=== PATIENT | male | born 1955 | race Caucasian/White ===

== ENCOUNTER 2022-03-19 17:36 | Observation (INO) | payer OTHER, BC, SELFPAY ==
[2022-03-19] VITALS (23 sets, daily range): BP systolic 77–141; BP diastolic 42–76; PULSE 66–91; RESP 2–64; TEMP 36.1; O2SAT 93–100; BMI 23.1; BMI 23.4
--- NOTE | 2022-03-19 17:49 | DI.RAD.S_ITS ---
PROCEDURE: XR CHEST 1V INDICATIONS: chest pain TECHNIQUE: One view of the chest was acquired. COMPARISON: [facility], CR, XR INTRAOPERATIVE PICC PORT PLACEMENT, 01/20/2022, 14:19. FINDINGS: Surgical changes and devices: Right-sided port with the catheter tip projecting at the cavoatrial junction. Lungs and pleura: Bilateral prominent pulmonary markings. No consolidation. No pleural effusions or pneumothorax. Mediastinum: Mediastinal contours appear normal. Heart size is within normal limits. Bones and chest wall: No suspicious bony lesions. Overlying soft tissues appear unremarkable. IMPRESSION: Right-sided port with the catheter tip projecting at the cavoatrial junction. Possible pulmonary vasculature engorgement. Dictated by: Nino Childs M.D. on 03/19/2022 at 18:30 Approved by: Nino Childs M.D. on 03/19/2022 at 18:31
--- NOTE | 2022-03-19 18:15 | ED.CHESTPAIN ---
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 He denies obvious provocation, palliation or radiation of this pain. He states that at its onset and most intense it was a 7/10 but is currently a 6/10. Denies any history of the same. He denies any exertional symptoms and states he denies any obvious exercise intolerance. He is had no associated symptoms such as dizziness, weakness or lightheadedness. He denies shortness of breath or cough. He denies unexplained diaphoresis nor nausea or vomiting. He denies any history of a stress test or an echo. He denies recent travel, history of known blood clot Related Data Home Medications Medication Instructions Recorded Confirmed HYDROCODONE/ACET 5/500 - 1 - 2 tab PO Q4-6H PRN ##0 06/01/10 (Hydrocodon-Acetaminophen 5-500) [VISINE] IO PRN ##0 06/01/10 acetaminophen 325 mg tablet 650 mg PO PRN ##0 06/01/10 Allergies Allergy/AdvReac Type Severity Reaction Status Date / Time morphine Allergy Vomiting Verified 03/19/22 17:48 Review of Systems Review of Systems Narrative: GENERAL: Denies chills, fatigue, malaise, fever, sweats. HEENT: Denies sinus pain, ear pain, sore throat, difficulty swallowing, dizziness. RESPIRATORY: Denies dyspnea, cough, wheezing, hemoptysis, sputum. CARDIOVASCULAR: See HPI GASTROINTESTINAL: Denies nausea, vomiting, abdominal pain, diarrhea, constipation, melena. : Denies dysuria, frequency, incontinence, hematuria, urinary retention. MUSCULOSKELETAL: denies weakness, joint pain, or bony pain SKIN: Denies rash, skin lesions, or other NEUROLOGIC: Denies weakness, headache, numbness, change in speech, confusion, seizures, incoordination. PSYCHIATRIC: No concerning psychosocial issues. 12 point review of systems is negative except for those stated above Patient History Social History Smoking Status: Never smoker Smoking Status: Never smoker Substance Use Type: does not use Exam Narrative Exam Narrative: GENERAL: [66] year old patient appears stated age. Well-developed patient, in mild distress. HEAD: Atraumatic. Normocephalic. EYES: Pupils equal round and reactive. Extraocular motions intact. No scleral icterus. No injection or drainage. ENT: Nose without bleeding, purulent drainage. Throat without erythema, tonsillar hypertrophy or exudate. Airway patent. NECK: Trachea midline. Non tender CARDIOVASCULAR: Regular rate and rhythm without murmurs, gallops, or rubs. RESPIRATORY: Clear to auscultation. Breath sounds equal bilaterally. No wheezes, rales, or rhonchi. GASTROINTESTINAL: Abdomen soft, non-tender, nondistended. EXTREMITIES: No edema or joint tenderness. BACK: Nontender without deformity or crepitance. No flank tenderness. NEURO: AOx3. SKIN: No rash or erythema of visible areas Initial Vital Signs Initial Vital Signs: Vital Signs Temperature 96.9 F L 03/19/22 17:42 Pulse Rate 78 03/19/22 17:42 Respiratory Rate 18 03/19/22 17:42 Blood Pressure 138/76 03/19/22 17:42 Pulse Oximetry 100 03/19/22 17:42 Oxygen Delivery Method 03/19/22 17:42 Scores HEART Score Heart Score history: Moderately Suspicious Heart Score EKG: Normal Heart Score Age: > or = 65 years old Heart Score risk factors: 1-2 risk factors Heart Score troponin: < or = to normal limit Heart Score Total: 4 Course Orders Ordered: ED Orders 03/19/22 17:49 XR chest 1V Stat 03/19/22 17:51 EKG-12 Lead Stat 03/19/22 18:10 Complete Blood Count AUTO DIFF Stat Comprehensive Metabolic Panel Stat D Dimer Stat Lipase Stat Magnesium Stat Troponin & CK Cardiac Panel Stat 03/19/22 18:39 EKG-12 Lead Stat 03/19/22 19:43 CT angio chest PE protocol Stat 03/19/22 20:38 Troponin & CK Cardiac Panel Stat 03/19/22 21:47 COVID19 -Nasal RAPID/Pre-Proc Stat Discontinued Medications Aspirin (Aspirin 81 Mg Chew Tab) 324 mg PO NOW ONE Stop: 03/19/22 18:47 Last Admin: 03/19/22 18:57 Dose: 324 mg Documented By: VINNY Ceftriaxone Sodium 2,000 mg/ (Sodium Chloride) 100 mls @ 200 mls/hr IV NOW ONE Stop: 03/19/22 22:14 Last Infusion: 03/19/22 23:14 Dose: 0 mls/hr Documented By: Admin: 03/19/22 22:26 Dose: 200 mls/hr Documented By: VINNY Azithromycin 500 mg/ Dextrose 250 mls @ 250 mls/hr IV NOW ONE Stop: 03/19/22 22:14 Last Admin: 03/19/22 23:11 Dose: 250 mls/hr Documented By: VINNY Ketorolac Tromethamine (Ketorolac 30 Mg/Ml Vial) 15 mg IV NOW ONE Stop: 03/19/22 19:24 Last Admin: 03/19/22 19:33 Dose: 15 mg Documented By: VINNY Nitroglycerin (Nitroglycerin 0.4 Mg Sl Tab) 0.4 mg SL [id number] PRN PRN Reason: Chest Pain Last Admin: 03/19/22 19:21 Dose: 0.4 mg Documented By: Admin: 03/19/22 19:04 Dose: 0.4 mg Documented By: Admin: 03/19/22 18:58 Dose: 0.4 mg Documented By: VINNY Reevaluation(s) Reevaluation #1: Little to no change after 3 nitro, though BP did drop quite a bit slowly rising afterwards with fluid bolus. It does drop to the 80s when he lays on his side and jumps back to the mid to upper 90s when on his back Vital Signs Vital signs: Vital Signs - 8 hr 03/19/22 17:42 03/19/22 17:59 03/19/22 18:00 Temperature 96.9 F L Pulse Rate 78 73 Respiratory Rate 18 13 Blood Pressure 138/76 141/70 H Pulse Oximetry 100 Oxygen Delivery Method Room Air 03/19/22 18:00 03/19/22 18:30 03/19/22 18:30 Temperature Pulse Rate 75 72 Respiratory Rate 7 L 10 L Blood Pressure 111/67 Pulse Oximetry 99 98 Oxygen Delivery Method 03/19/22 19:00 03/19/22 19:00 03/19/22 19:30 Temperature Pulse Rate 87 Respiratory Rate 14 Blood Pressure 116/56 L 77/48 L Pulse Oximetry 99 Oxygen Delivery Method 03/19/22 19:30 03/19/22 19:45 03/19/22 19:45 Temperature Pulse Rate 91 H 87 Respiratory Rate 10 L 2 L Blood Pressure 82/48 L Pulse Oximetry 95 94 Oxygen Delivery Method 03/19/22 20:34 03/19/22 20:34 03/19/22 20:45 Temperature Pulse Rate 76 71 Respiratory Rate 11 L Blood Pressure 89/54 L Pulse Oximetry 95 94 Oxygen Delivery Method 03/19/22 20:45 03/19/22 21:00 03/19/22 21:00 Temperature Pulse Rate 72 Respiratory Rate 11 L Blood Pressure 95/57 L 97/58 L Pulse Oximetry 95 Oxygen Delivery Method 03/19/22 21:15 03/19/22 21:15 03/19/22 21:30 Temperature Pulse Rate 77 Respiratory Rate 15 Blood Pressure 90/57 L 101/58 L Pulse Oximetry 94 Oxygen Delivery Method 03/19/22 21:30 03/19/22 21:45 03/19/22 21:45 Temperature Pulse Rate 73 69 Respiratory Rate 12 10 L Blood Pressure 80/42 L Pulse Oximetry 93 94 Oxygen Delivery Method 03/19/22 21:57 03/19/22 21:57 03/19/22 21:58 Temperature Pulse Rate 70 73 Respiratory Rate 64 H 18 Blood Pressure 84/51 L Pulse Oximetry 95 97 Oxygen Delivery Method 03/19/22 21:58 03/19/22 22:00 03/19/22 22:00 Temperature Pulse Rate 68 Respiratory Rate Blood Pressure 86/57 L 86/56 L Pulse Oximetry 95 Oxygen Delivery Method 03/19/22 22:15 03/19/22 22:15 03/19/22 22:30 Temperature Pulse Rate 68 67 Respiratory Rate Blood Pressure 94/57 L Pulse Oximetry 96 98 Oxygen Delivery Method 03/19/22 23:01 03/19/22 23:00 03/19/22 23:05 Temperature Pulse Rate 72 68 Respiratory Rate Blood Pressure 94/57 L 78/51 L Pulse Oximetry 96 Oxygen Delivery Method 03/19/22 23:05 03/19/22 23:07 03/19/22 23:07 Temperature Pulse Rate 66 75 Respiratory Rate Blood Pressure 80/54 L Pulse Oximetry 97 97 Oxygen Delivery Method MDM - Chest Pain Lab Data Result diagrams: 03/19/22 18:10 03/19/22 18:10 Labs: Lab Results 03/19/22 03/19/22 03/19/22 Range/Units 18:10 18:10 18:10 WBC 6.7 (4.5-11.0) X10^3/uL RBC 3.19 L (4.5-5.9) X10^6/uL Hgb 10.9 L (13.5-17.5) g/dL Hct 31.1 L (41-53) % MCV 97.7 (80-100) fL MCH 34.3 H (26-34) PG MCHC 35.1 (30-36) % RDW 15.5 H (11.6-14.8) % Plt Count 244 (150-400) X10^3/uL Neut % (Auto) 93.6 H (50-75) % Lymph % (Auto) 2.1 L (25-40) % Morgan % (Auto) 2.3 L (3-14) % Eos % (Auto) 1.7 L (2-4) % Baso % (Auto) 0.3 (0-2) % Neut # (Auto) 6300 (7085-3179) /uL Lymph # (Auto) 100 L (4603-5654) /uL Morgan # (Auto) 200 (0-900) /uL Eos # (Auto) 100 (0-450) /uL Baso # (Auto) 0 (0-100) /uL D-Dimer 1060 H (<500) ng/ml Sodium 134 L (137-145) mmol/L Potassium 4.1 (3.4-5.1) mmol/L Chloride 98 (98-107) mmol/L Carbon Dioxide 31 (22-32) mmol/L BUN 28 H (9-20) mg/dL Creatinine 0.61 L (0.66-1.25) mg/dL Estimated GFR > 60 (>60) mL/min BUN/Creatinine Ratio 45.9 H (6-22) Glucose 100 (80-110) mg/dL Calcium 8.2 L (8.4-10.2) mg/dL Magnesium 1.9 (1.6-2.3) mg/dL Total Bilirubin 0.9 (0.2-1.3) mg/dL AST 66 H (17-59) IU/L ALT 38 (<50) IU/L Alkaline Phosphatase 73 (38-126) U/L Total Creatine Kinase 59 (55-170) U/L CK-MB (CK-2) TNP CK-MB (CK-2) Rel Index TNP Troponin I < 0.012 (0.01-0.034) ng/mL Total Protein 6.3 (6.3-8.2) g/dL Albumin 3.5 (3.5-5.0) g/dL Globulin 2.8 (1.7-4.1) g/dL Albumin/Globulin Ratio 1.3 (1.0-2.8) Lipase 33 (23-300) U/L SARS-CoV-2 (PCR) (Negative) 03/19/22 03/19/22 Range/Units 20:38 21:47 WBC (4.5-11.0) X10^3/uL RBC (4.5-5.9) X10^6/uL Hgb (13.5-17.5) g/dL Hct (41-53) % MCV (80-100) fL MCH (26-34) PG MCHC (30-36) % RDW (11.6-14.8) % Plt Count (150-400) X10^3/uL Neut % (Auto) (50-75) % Lymph % (Auto) (25-40) % Morgan % (Auto) (3-14) % Eos % (Auto) (2-4) % Baso % (Auto) (0-2) % Neut # (Auto) (9618-6778) /uL Lymph # (Auto) (0166-1800) /uL Morgan # (Auto) (0-900) /uL Eos # (Auto) (0-450) /uL Baso # (Auto) (0-100) /uL D-Dimer (<500) ng/ml Sodium (137-145) mmol/L Potassium (3.4-5.1) mmol/L Chloride (98-107) mmol/L Carbon Dioxide (22-32) mmol/L BUN (9-20) mg/dL Creatinine (0.66-1.25) mg/dL Estimated GFR (>60) mL/min BUN/Creatinine Ratio (6-22) Glucose (80-110) mg/dL Calcium (8.4-10.2) mg/dL Magnesium (1.6-2.3) mg/dL Total Bilirubin (0.2-1.3) mg/dL AST (17-59) IU/L ALT (<50) IU/L Alkaline Phosphatase (38-126) U/L Total Creatine Kinase 50 L (55-170) U/L CK-MB (CK-2) TNP CK-MB (CK-2) Rel Index TNP Troponin I < 0.012 (0.01-0.034) ng/mL Total Protein (6.3-8.2) g/dL Albumin (3.5-5.0) g/dL Globulin (1.7-4.1) g/dL Albumin/Globulin Ratio (1.0-2.8) Lipase (23-300) U/L SARS-CoV-2 (PCR) Negative (Negative) Imaging Data Chest x-ray: Radiologist's Impression: Cole Moreno??66??M??1955 ? Allergy/Adv: morphine Close Chest X-Ray (Signed) CallYadielNino - 03/19/22 Launch?[place] [address] XRay Report Signed Patient: Cole Moreno MR#: [id number] : 1955 Acct:[id number] Age/Sex: 66 / M Date of Service: 03/19/22 Loc: Accession Number: [id number] ?? Procedure: XR chest 1V Ordering Provider: Osman Nuñez D.O. PROCEDURE:? XR CHEST 1V ? INDICATIONS:? chest pain ? TECHNIQUE:? One view of the chest was acquired.? ? COMPARISON:? [facility], CR, XR INTRAOPERATIVE PICC PORT PLACEMENT, 01/20/2022, 14:19. ? FINDINGS:? ? Surgical changes and devices:? Right-sided port with the catheter tip projecting at the cavoatrial junction. ? Lungs and pleura:? Bilateral prominent pulmonary markings.? No consolidation.? No pleural effusions or pneumothorax.? ? Mediastinum:? Mediastinal contours appear normal.? Heart size is within normal limits.? ? Bones and chest wall:? No suspicious bony lesions.? Overlying soft tissues appear unremarkable.? ? IMPRESSION:? Right-sided port with the catheter tip projecting at the cavoatrial junction.? ? Possible pulmonary vasculature engorgement.? ? ? Dictated by: Nino Childs M.D. on 03/19/2022 at 18:30 ? ? Approved by: Nino Childs M.D. on 03/19/2022 at 18:31 ? CT scan - chest: Radiologist's Impression: [address] [address] [address] Scan Report Signed Patient: Cole Moreno MR#: [id number] : 1955 Acct:[id number] Age/Sex: 66 / M Date of Service: 03/19/22 Loc: ED Accession Number: [id number] ?? Procedure: CT angio chest PE protocol Ordering Provider: Gera Don D.O. PROCEDURE:? CT ANGIO CHEST PE PROTOCOL ? INDICATIONS:? left chest pain, critical dimer, lung CA ? TECHNIQUE:? After the administration of intravenous contrast, 2 mm thick sections acquired from the pulmonary apices to the posterior costophrenic angles.? 3-dimensional maximum intensity projection (MIP) coronal and sagittal reformats were then acquired through the thorax.? For radiation dose reduction, the following was used:? automated exposure control, adjustment of mA and/or kV according to patient size.? ? COMPARISON:? None. ? FINDINGS:? Image quality:? Excellent.? ? Pulmonary arteries:? Pulmonary arteries are normal in size, and demonstrate no intraluminal filling defects to suggest central pulmonary embolism.? ? Lungs and pleura:? Spiculated opacity in the right lower lobe, (5/161).? This has a more curvilinear appearance on the coronal reformats.? Scattered areas of consolidative and ground-glass opacity bilaterally.? Pleural apical scarring.? Central airways are clear.? No pleural effusions or pneumothorax.? ? Mediastinum:? Heart size is normal, without pericardial effusion.? AP window node measuring 0.8 cm, (4/58)? Ascending aorta aneurysmal dilatation measuring 3.6 cm.? Esophagus is normal in caliber, without hiatal hernia.? ? Bones and chest wall:? Right-sided port with the catheter tip at the cavoatrial junction. ?Sclerotic focus at T7 is indeterminate.? Multilevel degenerative change.? T6 and T10 compression fractures.? Left thyroid nodule measuring 1.4 cm.? No axillary or supraclavicular adenopathy.? ? Abdomen:? Visualized upper abdominal solid organs appear normal in the early arterial phase of enhancement.? ? IMPRESSION:? 1. No pulmonary embolism. ? 2. Bilateral small areas of patchy and consolidative airspace opacity.? This could be seen in multifocal pneumonia. ? 3. Spiculated nodular opacity in the right lower lobe.? This could represent a lung cancer.? Possibly treated.? ? 4. Aneurysmal dilatation of the ascending thoracic aorta measuring 3.6 cm. ? 5. Sclerotic focus at T7 is indeterminate.? This could be degenerative in nature. ? 6. T6 and T10 compression fractures. ? Recommend comparison with prior CT chest when available. ? ? Dictated by: Nino Childs M.D. on 03/19/2022 at 20:26 ? ? Approved by: Nino Childs M.D. on 03/19/2022 at 20:37 ? ECG Data Interpretation: [1751] EKG is normal sinus rhythm rate [74 ] and free of any signs of ischemia or ectopy. No ST segmental elevation or depression. No T wave inversions [1837] EKG is normal sinus rhythm rate [73 ] and free of any signs of ischemia or ectopy. No ST segmental elevation or depression. No T wave inversions Discharge Plan Departure Patient Disposition: Admitted As Inpatient Clinical Impression: Multifocal pneumonia, Atypical chest pain Admit Date/Time: 03/19/22 23:10 Admit Provider: Pretty Francis
[2022-03-19 18:28] LABS: Add Manual Diff / Slide Review NO; Basophils Absolute Auto 0 /uL (0-100); Basophils Percent Auto 0.3 % (0-2); Eosinophils Absolute Auto 100 /uL (0-450); Eosinophils Percent Auto 1.7 % (2-4); Hematocrit 31.1 % (41-53); Hemoglobin 10.9 g/dL (13.5-17.5); Lymphocytes Absolute Auto 100 /uL (1100-4500); Lymphocytes Percent Auto 2.1 % (25-40); Mean Corpuscular HGB Conc 35.1 % (30-36); Mean Corpuscular Hemoglobin 34.3 PG (26-34); Mean Corpuscular Volume 97.7 fL (80-100); Monocytes Absolute Auto 200 /uL (0-900); Monocytes Percent Auto 2.3 % (3-14); Neutrophils Absolute Auto 6300 /uL (1500-7000); Neutrophils Percent Auto 93.6 % (50-75); Platelet Count 244 X10^3/uL (150-400); Red Blood Cell Count 3.19 X10^6/uL (4.5-5.9); Red Cell Distribution Width 15.5 % (11.6-14.8); White Blood Cell Count 6.7 X10^3/uL (4.5-11.0)
[2022-03-19 18:48] LABS: Alanine Aminotransferase 38 IU/L (<50); Albumin 3.5 g/dL (3.5-5.0); Albumin Globulin Ratio 1.3 (1.0-2.8); Alkaline Phosphatase 73 U/L (38-126); Aspartate Aminotransferase 66 IU/L (17-59); BUN Creatinine Ratio 45.9 (6-22); Bilirubin Total 0.9 mg/dL (0.2-1.3); Blood Urea Nitrogen 28 mg/dL (9-20); Calcium 8.2 mg/dL (8.4-10.2); Carbon Dioxide 31 mmol/L (22-32); Chloride 98 mmol/L (98-107); Creatine Kinase 59 U/L (55-170); Estimated Glomerular Filt Rate > 60 mL/min (>60); Globulin 2.8 g/dL (1.7-4.1); Glucose 100 mg/dL (80-110); HEMOLYSIS < 15 (0-50); Lipase 33 U/L (23-300); Magnesium 1.9 mg/dL (1.6-2.3); Potassium 4.1 mmol/L (3.4-5.1); Sodium 134 mmol/L (137-145); Total Protein 6.3 g/dL (6.3-8.2)
[2022-03-19] MEDS: ASPIRIN 81 MG CHEW TAB 324 MG PO (18:57)
[2022-03-19 18:58] LABS: Troponin I < 0.012 ng/mL (0.01-0.034)
[2022-03-19] MEDS: NITROGLYCERIN 0.4 MG SL TAB SL ×3 (18:58→19:21)
[2022-03-19 19:04] LABS: D Dimer 1060 ng/ml (<500)
[2022-03-19] MEDS: KETOROLAC 30 MG/ML VIAL 15 MG IV (19:33)
--- NOTE | 2022-03-19 19:43 | DI.CT.S_ITS ---
PROCEDURE: CT ANGIO CHEST PE PROTOCOL INDICATIONS: left chest pain, critical dimer, lung CA TECHNIQUE: After the administration of intravenous contrast, 2 mm thick sections acquired from the pulmonary apices to the posterior costophrenic angles. 3-dimensional maximum intensity projection (MIP) coronal and sagittal reformats were then acquired through the thorax. For radiation dose reduction, the following was used: automated exposure control, adjustment of mA and/or kV according to patient size. COMPARISON: None. FINDINGS: Image quality: Excellent. Pulmonary arteries: Pulmonary arteries are normal in size, and demonstrate no intraluminal filling defects to suggest central pulmonary embolism. Lungs and pleura: Spiculated opacity in the right lower lobe, (5/161). This has a more curvilinear appearance on the coronal reformats. Scattered areas of consolidative and ground-glass opacity bilaterally. Pleural apical scarring. Central airways are clear. No pleural effusions or pneumothorax. Mediastinum: Heart size is normal, without pericardial effusion. AP window node measuring 0.8 cm, (4/58) Ascending aorta aneurysmal dilatation measuring 3.6 cm. Esophagus is normal in caliber, without hiatal hernia. Bones and chest wall: Right-sided port with the catheter tip at the cavoatrial junction. Sclerotic focus at T7 is indeterminate. Multilevel degenerative change. T6 and T10 compression fractures. Left thyroid nodule measuring 1.4 cm. No axillary or supraclavicular adenopathy. Abdomen: Visualized upper abdominal solid organs appear normal in the early arterial phase of enhancement. IMPRESSION: 1. No pulmonary embolism. 2. Bilateral small areas of patchy and consolidative airspace opacity. This could be seen in multifocal pneumonia. 3. Spiculated nodular opacity in the right lower lobe. This could represent a lung cancer. Possibly treated. 4. Aneurysmal dilatation of the ascending thoracic aorta measuring 3.6 cm. 5. Sclerotic focus at T7 is indeterminate. This could be degenerative in nature. 6. T6 and T10 compression fractures. Recommend comparison with prior CT chest when available. Dictated by: Nino Childs M.D. on 03/19/2022 at 20:26 Approved by: Nino Childs M.D. on 03/19/2022 at 20:37
[2022-03-19 21:32] LABS: Creatine Kinase 50 U/L (55-170)
[2022-03-19 21:45] LABS: Troponin I < 0.012 ng/mL (0.01-0.034)
[2022-03-19 22:08] LABS: COVID19 -Nasal RAPID Negative (Negative)
[2022-03-19] MEDS: cefTRIAXone 2,000 MG in SODIUM CHLORIDE 0.9% 100 ML 200 MG IV (22:26)
--- NOTE | 2022-03-19 23:03 | PC.NURSE ---
[employer] note: Pat, friend, phone number: [phone]. Left for the evening.
[2022-03-19] MEDS: AZITHROMYCIN 500 MG in DEXTROSE 5% IN WATER 250 ML 250 MG IV (23:11)
[2022-03-19] MEDS: SODIUM CHLORIDE 0.9% 1,000 ML 175 ML IV (23:57)
[2022-03-20] VITALS (11 sets, daily range): BP systolic 83–99; BP diastolic 38–62; PULSE 46–77; RESP 16–21; TEMP 36.6–37.2; O2SAT 94–99
--- NOTE | 2022-03-20 | PC.NURSE ---
Patient admitted from ED to room 221 for chest pain and hypotension. On arrival, patient's BP 80/54 while receiving NS bolus. BP cycling Q15 min. Patient rated 3/10 chest pain. Scheduled Q6 torodol ordered for pain management.
--- NOTE | 2022-03-20 00:08 | P.HP_ITS ---
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 He stated that it occurred about 315 did on March 19 while at rest. He denies fevers sweats or chills, denies nausea vomiting, abdominal pain, dysuria or constipation. He states the pain is right in the center of his chest and it is not reproducible with pressure. Was given nitro x3 in the emergency department with no effect but it appeared to resolve with Toradol. He stated he did have some shortness of breath but it was very transient. In the emergency department they did do a CTA of the chest due to an elevated D- dimer of over 1000 which was negative. His 1st troponin is also negative. The chest CTA did indicate bilateral lower lobe consolidation and the patient is presumed to have a bilateral pneumonia. He is afebrile, blood pressure 88/51, heart rate 46, respiratory rate 21, oxygen saturation 99% on room air he weighs 62 kg with a BMI of 23.5. He is mildly anemic with a hemoglobin and hematocrit of 10.9 and 31.1, he has a normal Pap platelet count, initial D-dimer was 1060, sodium 134, creatinine 0.61 with a BUN of 28, AST 66, and COVID 19 PCR is negative. FH: He believes his mother passed of bilateral breast cancer at the age of 88. He does not know his father is only met him once. Patient History Medical History Lung cancer, primary, with metastasis from lung to other site Surgical History Hx of appendectomy Hx of bilateral hip replacements Family & Social History Family History Mother Cancer Father Unknown family medical history Safety & Behavioral: Feels Safe in Current Yes Environment Been Physically Hurt or No Threatened By a Person Tobacco & Substance use: Smoking Status Never smoker Substance Use Type does not use Comment: Drinks 2-3 mixed hard liquer drinks/day, denies hx of withdrawals. Meds Home Medications and Allergies Home Medications Medication Instructions Recorded Confirmed Type HYDROCODONE/ACET 5/500 - 1 - 2 tab PO Q4-6H PRN ##0 06/01/10 03/20/22 History (Hydrocodon-Acetaminophen 5-500) [VISINE] IO PRN ##0 06/01/10 History acetaminophen 325 mg tablet 650 mg PO PRN ##0 06/01/10 03/20/22 History folic acid 15 mg tablet 10 mg PO BID 03/20/22 03/20/22 History magnesium 200 mg tablet 200 mg DAILY 03/20/22 03/20/22 History methadone 10 mg tablet 10 mg PO BID 03/20/22 03/20/22 History Allergies Allergy/AdvReac Type Severity Reaction Status Date / Time morphine Allergy Vomiting Verified 03/19/22 17:48 Review of Systems Review of Systems ROS: Yes All systems reviewed with the patient and are negative except as otherwise documented Exam Vital Signs (past 8 hours): - 03/19/22 17:42 03/19/22 17:59 03/19/22 18:00 Temperature 96.9 F L Pulse Rate 78 73 Respiratory Rate 18 13 Blood Pressure 138/76 141/70 H Pulse Oximetry 100 Oxygen Delivery Method Room Air 03/19/22 18:00 03/19/22 18:30 03/19/22 18:30 Temperature Pulse Rate 75 72 Respiratory Rate 7 L 10 L Blood Pressure 111/67 Pulse Oximetry 99 98 Oxygen Delivery Method 03/19/22 19:00 03/19/22 19:00 03/19/22 19:30 Temperature Pulse Rate 87 Respiratory Rate 14 Blood Pressure 116/56 L 77/48 L Pulse Oximetry 99 Oxygen Delivery Method 03/19/22 19:30 03/19/22 19:45 03/19/22 19:45 Temperature Pulse Rate 91 H 87 Respiratory Rate 10 L 2 L Blood Pressure 82/48 L Pulse Oximetry 95 94 Oxygen Delivery Method 03/19/22 20:34 03/19/22 20:34 03/19/22 20:45 Temperature Pulse Rate 76 71 Respiratory Rate 11 L Blood Pressure 89/54 L Pulse Oximetry 95 94 Oxygen Delivery Method 03/19/22 20:45 03/19/22 21:00 03/19/22 21:00 Temperature Pulse Rate 72 Respiratory Rate 11 L Blood Pressure 95/57 L 97/58 L Pulse Oximetry 95 Oxygen Delivery Method 03/19/22 21:15 03/19/22 21:15 03/19/22 21:30 Temperature Pulse Rate 77 Respiratory Rate 15 Blood Pressure 90/57 L 101/58 L Pulse Oximetry 94 Oxygen Delivery Method 03/19/22 21:30 03/19/22 21:45 03/19/22 21:45 Temperature Pulse Rate 73 69 Respiratory Rate 12 10 L Blood Pressure 80/42 L Pulse Oximetry 93 94 Oxygen Delivery Method 03/19/22 21:57 03/19/22 21:57 03/19/22 21:58 Temperature Pulse Rate 70 73 Respiratory Rate 64 H 18 Blood Pressure 84/51 L Pulse Oximetry 95 97 Oxygen Delivery Method 03/19/22 21:58 03/19/22 22:00 03/19/22 22:00 Temperature Pulse Rate 68 Respiratory Rate Blood Pressure 86/57 L 86/56 L Pulse Oximetry 95 Oxygen Delivery Method 03/19/22 22:15 03/19/22 22:15 03/19/22 22:30 Temperature Pulse Rate 68 67 Respiratory Rate Blood Pressure 94/57 L Pulse Oximetry 96 98 Oxygen Delivery Method 03/19/22 23:01 03/19/22 23:00 03/19/22 23:05 Temperature Pulse Rate 72 68 Respiratory Rate Blood Pressure 94/57 L 78/51 L Pulse Oximetry 96 Oxygen Delivery Method 03/19/22 23:05 03/19/22 23:07 03/19/22 23:07 Temperature Pulse Rate 66 75 Respiratory Rate Blood Pressure 80/54 L Pulse Oximetry 97 97 Oxygen Delivery Method 03/19/22 23:15 03/19/22 23:15 Temperature Pulse Rate 67 Respiratory Rate Blood Pressure 94/54 L Pulse Oximetry 96 Oxygen Delivery Method Oxygen Delivery Method Room Air Narrative Exam Narrative: Gen: Alert, oriented, chronic LE ill-appearing 66 y.o. male, appears older than stated age HEENT: normocephalic, atraumatic, conjunctiva clear, sclera non-icteric, oral mucosa pink and moist Neck: supple, full ROM, no JVD, trachea is midline Resp: Coarse but no wheezes, non-labored breathing CV: RRR, no murmur or rubs Abd: soft, non-tender, normoactive BTs Skin: no lesions or rashes, dry and intact Neuro: Alert and oriented X 4 w/no focal deficits. Speech clear and coherent. Extremities: moves all 4 extremities, is ambulatory, negative Edna?s sign Psyche: Depressed affect. Objective Labs Result Diagrams: 03/19/22 18:10 03/19/22 18:10 Labs: Laboratory Results - last 24 hr 03/19/22 03/19/22 03/19/22 18:10 18:10 18:10 WBC 6.7 RBC 3.19 L Hgb 10.9 L Hct 31.1 L MCV 97.7 MCH 34.3 H MCHC 35.1 RDW 15.5 H Plt Count 244 Neut % (Auto) 93.6 H Lymph % (Auto) 2.1 L Sanders % (Auto) 2.3 L Eos % (Auto) 1.7 L Baso % (Auto) 0.3 Neut # (Auto) 6300 Lymph # (Auto) 100 L Sanders # (Auto) 200 Eos # (Auto) 100 Baso # (Auto) 0 D-Dimer 1060 H Sodium 134 L Potassium 4.1 Chloride 98 Carbon Dioxide 31 BUN 28 H Creatinine 0.61 L Estimated GFR > 60 BUN/Creatinine Ratio 45.9 H Glucose 100 Calcium 8.2 L Magnesium 1.9 Total Bilirubin 0.9 AST 66 H ALT 38 Alkaline Phosphatase 73 Total Creatine Kinase 59 CK-MB (CK-2) TNP CK-MB (CK-2) Rel Index TNP Troponin I < 0.012 Total Protein 6.3 Albumin 3.5 Globulin 2.8 Albumin/Globulin Ratio 1.3 Lipase 33 SARS-CoV-2 (PCR) 03/19/22 03/19/22 20:38 21:47 WBC RBC Hgb Hct MCV MCH MCHC RDW Plt Count Neut % (Auto) Lymph % (Auto) Sanders % (Auto) Eos % (Auto) Baso % (Auto) Neut # (Auto) Lymph # (Auto) Sanders # (Auto) Eos # (Auto) Baso # (Auto) D-Dimer Sodium Potassium Chloride Carbon Dioxide BUN Creatinine Estimated GFR BUN/Creatinine Ratio Glucose Calcium Magnesium Total Bilirubin AST ALT Alkaline Phosphatase Total Creatine Kinase 50 L CK-MB (CK-2) TNP CK-MB (CK-2) Rel Index TNP Troponin I < 0.012 Total Protein Albumin Globulin Albumin/Globulin Ratio Lipase SARS-CoV-2 (PCR) Negative Assessment & Plan Assessment & Plan narrative: Cole Moreno will be admitted for treatment of a bilateral pneumonia and cardiac risk stratification for chest pain. Bilateral pneumonia, acute, present on admission * He is initiated on IV ceftriaxone * RT is needed though he seems to be oxygenating well at this time Left-sided chest pain, acute, present on admission * He did receive 3 doses of nitroglycerin in the emergency department with no effect, his pain was actually eliminated with IV ketorolac * Will order a lipid panel and an echocardiogram in the morning * First troponin was negative, he is ordered for 2 more draws Stage IV lung cancer with metastasis to the brain and spine * Suspect chest pain might be due to bone metastasis VTE Prophylaxis: Wells risk score 1 Enoxaparin 40 mg subQ once daily Bilateral SCDs Patient is admitted to the inpatient service due to the severity of disease, ri sks of further disease progression and this stay is expected to exceed 2 midnights. FEN: IV fluids: NS at 175 ml/hour , diet: general, labs: CBC, C/BMP, liver enzymes, Mag, PT/INR Consultants None Dispo: probable d/c to home Code status: DNR/DNI as discussed with the patient who identifies daughter Mike and son Juan as his surrogates and POA. Stated he would be open to a cardiac cath if indicated [X] I have utilized all available immediate resources to obtain, update, or review of the patient's current medications VTE Deep Vein Thrombosis/Pulmonary Embolism Present on Admission: No MIPS - Admit I confirm the patient?s Advance Care Plan is present, Code status is documented, Surrogate decision maker is in patient?s record: Yes MIPS - DC The patient has current or prior documentation of left ventricular ejection fraction (LVEF) less than 40%, or moderate or severely depressed left ventricular systolic function.: No COVID-19 COVID-19 status: Negative Result date/Date tested (Pos, Neg/Pending): 03/19/22 Scores Wells' Criteria for PE Clinical signs and symptoms of DVT: No PE is #1 Dx or equally likely: No Heart rate > 100: No Immobilization at least 3 days or surg in previous 4 weeks: No History of PE or DVT: No Hemoptysis: No Malignancy w/Treatment within 6 months or palliative: Yes Torsten' PE Score total: 1
--- NOTE | 2022-03-20 00:08 | DI.ECHO.S_ITS ---
[facility]---------+ [facility] +---------+ : : [address] : : : : [id number] : : : : Phone: [phone]+ Echocardiogram Report + + :Name: FRANSICO ZAPATA Study Date: 03/20/2022 Height: 64 in : :[facility] ReadingLocation: Weight: 135 lb: : Gender: Male BSA: 1.7 m2 : :: 1955 Age: 66 yrs BP: 96/57 mmHg: :Reason For Study: Chest pain : :Ordering Physician: JAZZ, : :RONIT Performed By: Washington Calderon : :Referring: RONIT SCHULZ : + + Interpretation Summary The left ventricle is normal in size and wall thickness. Left ventricular systolic function is normal. The ejection fraction is estimated to be 55-60%. There are no focal wall motion abnormalities. Diastolic parameters suggest probable normal left ventricular diastolic function and normal filling pressures. The right ventricle is normal in size and function. The right ventricular systolic pressure is estimated to be at least 28 mmHg based on an estimated right atrial pressure of 3 mm Hg. The left atrium is severely dilated. Right atrial size is normal. There is mild mitral regurgitation. There is no other significant valvular heart disease. The aortic root is normal size. Procedure: A two-dimensional transthoracic echocardiogram with color flow and Doppler was performed. The study quality was technically adequate. There is no prior echocardiogram noted for this patient. Left Ventricle: The left ventricle is normal in size and wall thickness. Left ventricular systolic function is normal. The ejection fraction is estimated to be 55-60%. There are no focal wall motion abnormalities. Diastolic parameters suggest probable normal left ventricular diastolic function and normal filling pressures. Right Ventricle: The right ventricle is normal in size and function. Atria: The left atrium is severely dilated. Right atrial size is normal. The interatrial septum grossly appears intact with no obvious evidence for an atrial septal defect. Mitral Valve: The mitral valve is normal in structure and function. There is mild mitral regurgitation. Aortic Valve: The aortic valve is normal in structure and function. No aortic regurgitation is present. Tricuspid Valve: The tricuspid valve is normal in structure and function. There is a trace or physiologic amount of tricuspid regurgitation. The right ventricular systolic pressure is estimated to be at least 28 mmHg based on an estimated right atrial pressure of 3 mm Hg. Pulmonic Valve: The pulmonic valve is normal in structure and function. There is no pulmonic valvular regurgitation. There is no other significant valvular heart disease. Great Vessels: The aortic root is normal size. The dimensions of the ascending aorta are normal. The IVC is of normal diameter and collapses greater than 50% with a sniff. This suggests a low right atrial pressure of 3 mm Hg. Pericardium/ Pleura There is no pericardial effusion. There is no pleural effusion. MMode/2D Measurements & Calculations LVIDd: 5.2 cm LVOT diam: 2.4 cm LVIDs: 3.5 cm Ao root diam: 3.7 cm FS: 31.6 % asc Aorta Diam: 3.4 cm IVSd: 0.96 cm LVPWd: 1.1 cm LV ng. diameter/BSA (cm/m^2): 3.1 LV sys. diameter/BSA (cm/m^2): 2.1 LA A2 area: 25.0 cm2 RA long axis: 5.3 cm LA A4 area: 25.8 cm2 RA area: 13.8 cm2 LA length (vol): 6.2 cm RA vol: 30.3 ml LA vol: 88.2 ml RA : 18.3 ml/m2 LA vol index: 53.3 ml/m2 TAPSE: 1.8 cm Doppler Measurements & Calculations Ao V2 max: 153.7 cm/sec LVOT Max Lenny: 117.2 cm/sec Ao V2 mean: 104.9 cm/sec LV V1 max P.5 mmHg Ao max P.5 mmHg LV V1 VTI: 22.6 cm Ao mean P.8 mmHg LUIS(I,D): 3.9 cm2 Ao V2 VTI: 25.9 cm LUIS(V,D): 3.4 cm2 sev ratio: 0.87 LUIS indexed to BSA (cm^2/m^2): 2.3 MV E max lenny: 73.4 cm/sec TR max lenny: 249.6 cm/sec MV A max lenny: 86.5 cm/sec TR max P.9 mmHg MV E/A: 0.85 Med Peak E' Lenny: 8.0 cm/sec E/E' med: 9.2 Lat Peak E' Lenny: 10.6 cm/sec E/E' lat: 6.9 E/e' average: 8.1 MV dec time: 0.23 sec SV(LVOT): 100.3 ml Reading Physician:12:34 PM
[2022-03-20] MEDS: KETOROLAC 30 MG/ML VIAL 15 MG IV (01:25)
--- NOTE | 2022-03-20 01:35 | PC.NURSE ---
Patient's BP 80's/40's with MAP's in low 50's. MASTER PLANNER Tito made aware. 1L NS bolus ordered. Will continue to monitor.
[2022-03-20] MEDS: SODIUM CHLORIDE 0.9% 1,000 ML 1000 ML IV (01:47)
[2022-03-20 02:47] LABS: Add Manual Diff / Slide Review NO; Basophils Absolute Auto 0 /uL (0-100); Basophils Percent Auto 0.2 % (0-2); Eosinophils Absolute Auto 100 /uL (0-450); Eosinophils Percent Auto 1.2 % (2-4); Hematocrit 26.6 % (41-53); Hemoglobin 9.1 g/dL (13.5-17.5); Lymphocytes Absolute Auto 100 /uL (1100-4500); Lymphocytes Percent Auto 2.4 % (25-40); Mean Corpuscular HGB Conc 34.3 % (30-36); Mean Corpuscular Hemoglobin 33.9 PG (26-34); Mean Corpuscular Volume 98.7 fL (80-100); Monocytes Absolute Auto 100 /uL (0-900); Monocytes Percent Auto 2.2 % (3-14); Neutrophils Absolute Auto 4400 /uL (1500-7000); Platelet Count 198 X10^3/uL (150-400); Red Blood Cell Count 2.69 X10^6/uL (4.5-5.9); Red Cell Distribution Width 15.6 % (11.6-14.8); White Blood Cell Count 4.7 X10^3/uL (4.5-11.0)
[2022-03-20 02:53] LABS: Alanine Aminotransferase 30 IU/L (<50); Albumin 2.7 g/dL (3.5-5.0); Albumin Globulin Ratio 1.1 (1.0-2.8); Alkaline Phosphatase 57 U/L (38-126); Aspartate Aminotransferase 53 IU/L (17-59); BUN Creatinine Ratio 39.7 (6-22); Bilirubin Total 0.8 mg/dL (0.2-1.3); Blood Urea Nitrogen 23 mg/dL (9-20); Calcium 6.9 mg/dL (8.4-10.2); Carbon Dioxide 28 mmol/L (22-32); Chloride 103 mmol/L (98-107); Cholesterol 100 mg/dL (140-199); Estimated Glomerular Filt Rate > 60 mL/min (>60); Globulin 2.4 g/dL (1.7-4.1); Glucose 99 mg/dL (80-110); HDL Cholesterol 43 mg/dL (40-60); HEMOLYSIS < 15 (0-50); LDL Cholesterol Calculated 49 mg/dL (<100); Magnesium 1.8 mg/dL (1.6-2.3); Sodium 134 mmol/L (137-145); Total Protein 5.1 g/dL (6.3-8.2); Triglycerides 42 mg/dL (35-150)
--- NOTE | 2022-03-20 02:55 | PC.NURSE ---
After 1L bolus patient's MAPs 66-69. Tito made aware.
[2022-03-20 03:04] LABS: Troponin I 0.031 ng/mL (0.01-0.034)
[2022-03-20 03:34] LABS: Thyroid Stimulating Hormone 2.36 uIU/mL (0.47-4.68)
[2022-03-20] MEDS: SODIUM CHLORIDE 0.9% 1,000 ML 175 ML IV (05:45)
[2022-03-20] MEDS: AZITHROMYCIN 250 MG TABLET 500 MG PO (09:04)
[2022-03-20] MEDS: ENOXAPARIN 40 MG/0.4 ML SYRINGE SUBCUT (09:04)
--- NOTE | 2022-03-20 11:09 | PC.NURSE ---
Addendum entered by Chantell Brunner R.N. 03/20/22 14:45: Pt w/discharge orders. Port unaccessed w/o incidence. D/C instructions given w/understanding Pt escorted by staff via W/C to waiting vehicle. D/C in stable status. Original Note: Pt resting at intervals ECHO completed. IVF infusing into the right chaet port via pump w/o incidence. Tele showing NSR per ICU staff. Most likely D/C this afternoon Call light w/in reach. bed alarm on for pt safety.
--- NOTE | 2022-03-20 15:00 | CM.DPNOTE ---
DCP Note 66 yo male, resident of [place], admitted for chest pain r/o and discharged home w/supportive family after echo today; patient indp at baseline, no needs identified by this FACILITIES DIRECTOR upon DC Close outpatient f/u recommended JW
--- NOTE | 2022-03-20 18:19 | PM.DS.1 ---
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 He stated that it occurred about 315 did on March 19 while at rest. He denies fevers sweats or chills, denies nausea vomiting, abdominal pain, dysuria or constipation. He states the pain is right in the center of his chest and it is not reproducible with pressure. Was given nitro x3 in the emergency department with no effect but it appeared to resolve with Toradol. He stated he did have some shortness of breath but it was very transient. In the emergency department they did do a CTA of the chest due to an elevated D-dimer of over 1000 which was negative. His 1st troponin is also negative. The chest CTA did indicate bilateral lower lobe consolidation and the patient is presumed to have a bilateral pneumonia. He is afebrile, blood pressure 88/51, heart rate 46, respiratory rate 21, oxygen saturation 99% on room air he weighs 62 kg with a BMI of 23.5. He is mildly anemic with a hemoglobin and hematocrit of 10.9 and 31.1, he has a normal Pap platelet count, initial D-dimer was 1060, sodium 134, creatinine 0.61 with a BUN of 28, AST 66, and COVID 19 PCR is negative. FH: He believes his mother passed of bilateral breast cancer at the age of 88. He does not know his father is only met him once. Discharge Providers Provider Date of admission: 03/19/22 23:10 Discharge Date: 03/20/22 Primary care physician: Reinaldo Biswas MD Consults: 03/19/22 23:52 Consult to Respiratory Therapy Evaluate & Treat Comment: Physician Instructions: Evaluate and treat Discharge provider: Eliecer Stevens MD Summary Hospital Course Discharge Diagnosis: 1. Pneumonia 2. Atypical chest pain 3. Metastatic lung cancer with mets to brain and bones Hospital Course: Mr. Moreno was admitted with atypical chest pain. He did not have elevated troponins and his ECHO showed normal EF and no focal wall motion abnormalities. He was found to have a pneumonia on imaging and he does have extensive mets of his cancer. These are likely the cause of his pain. His pain improved in the hospital and he was discharged on 4 more days of augmentin and doxycycline for his pneumonia. Exam Vital Signs (past 8 hours): - 03/20/22 11:00 03/20/22 12:21 Temperature 98 F Pulse Rate 69 Respiratory Rate 17 Blood Pressure 99/59 L Pulse Oximetry 95 95 Oxygen Flow Rate 0 Oxygen Delivery Method Room Air Oxygen Flow Rate 0 Objective Labs Result Diagrams: 03/20/22 02:20 03/20/22 02:20 Labs: Laboratory Results - last 24 hr 03/19/22 03/19/22 03/19/22 18:10 18:10 18:10 WBC 6.7 RBC 3.19 L Hgb 10.9 L Hct 31.1 L MCV 97.7 MCH 34.3 H MCHC 35.1 RDW 15.5 H Plt Count 244 Neut % (Auto) 93.6 H Lymph % (Auto) 2.1 L Ripley % (Auto) 2.3 L Eos % (Auto) 1.7 L Baso % (Auto) 0.3 Neut # (Auto) 6300 Lymph # (Auto) 100 L Ripley # (Auto) 200 Eos # (Auto) 100 Baso # (Auto) 0 D-Dimer 1060 H Sodium 134 L Potassium 4.1 Chloride 98 Carbon Dioxide 31 BUN 28 H Creatinine 0.61 L Estimated GFR > 60 BUN/Creatinine Ratio 45.9 H Glucose 100 Calcium 8.2 L Magnesium 1.9 Total Bilirubin 0.9 AST 66 H ALT 38 Alkaline Phosphatase 73 Total Creatine Kinase 59 CK-MB (CK-2) TNP CK-MB (CK-2) Rel Index TNP Troponin I < 0.012 Total Protein 6.3 Albumin 3.5 Globulin 2.8 Albumin/Globulin Ratio 1.3 Triglycerides Cholesterol LDL Cholesterol, Calc HDL Cholesterol Lipase 33 Procalcitonin TSH SARS-CoV-2 (PCR) 03/19/22 03/19/22 03/19/22 20:38 20:38 21:47 WBC RBC Hgb Hct MCV MCH MCHC RDW Plt Count Neut % (Auto) Lymph % (Auto) Ripley % (Auto) Eos % (Auto) Baso % (Auto) Neut # (Auto) Lymph # (Auto) Ripley # (Auto) Eos # (Auto) Baso # (Auto) D-Dimer Sodium Potassium Chloride Carbon Dioxide BUN Creatinine Estimated GFR BUN/Creatinine Ratio Glucose Calcium Magnesium Total Bilirubin AST ALT Alkaline Phosphatase Total Creatine Kinase 50 L CK-MB (CK-2) TNP CK-MB (CK-2) Rel Index TNP Troponin I < 0.012 Total Protein Albumin Globulin Albumin/Globulin Ratio Triglycerides Cholesterol LDL Cholesterol, Calc HDL Cholesterol Lipase Procalcitonin 0.10 TSH SARS-CoV-2 (PCR) Negative 03/20/22 03/20/22 03/20/22 02:20 02:20 02:20 WBC 4.7 RBC 2.69 L Hgb 9.1 L Hct 26.6 L MCV 98.7 MCH 33.9 MCHC 34.3 RDW 15.6 H Plt Count 198 Neut % (Auto) 94.0 H Lymph % (Auto) 2.4 L Ripley % (Auto) 2.2 L Eos % (Auto) 1.2 L Baso % (Auto) 0.2 Neut # (Auto) 4400 Lymph # (Auto) 100 L Ripley # (Auto) 100 Eos # (Auto) 100 Baso # (Auto) 0 D-Dimer Sodium 134 L Potassium 4.0 Chloride 103 Carbon Dioxide 28 BUN 23 H Creatinine 0.58 L Estimated GFR > 60 BUN/Creatinine Ratio 39.7 H Glucose 99 Calcium 6.9 L Magnesium 1.8 Total Bilirubin 0.8 AST 53 ALT 30 Alkaline Phosphatase 57 Total Creatine Kinase CK-MB (CK-2) CK-MB (CK-2) Rel Index Troponin I 0.031 Total Protein 5.1 L Albumin 2.7 L Globulin 2.4 Albumin/Globulin Ratio 1.1 Triglycerides Cholesterol LDL Cholesterol, Calc HDL Cholesterol Lipase Procalcitonin TSH SARS-CoV-2 (PCR) 03/20/22 03/20/22 02:20 02:20 WBC RBC Hgb Hct MCV MCH MCHC RDW Plt Count Neut % (Auto) Lymph % (Auto) Ripley % (Auto) Eos % (Auto) Baso % (Auto) Neut # (Auto) Lymph # (Auto) Ripley # (Auto) Eos # (Auto) Baso # (Auto) D-Dimer Sodium Potassium Chloride Carbon Dioxide BUN Creatinine Estimated GFR BUN/Creatinine Ratio Glucose Calcium Magnesium Total Bilirubin AST ALT Alkaline Phosphatase Total Creatine Kinase CK-MB (CK-2) CK-MB (CK-2) Rel Index Troponin I Total Protein Albumin Globulin Albumin/Globulin Ratio Triglycerides 42 Cholesterol 100 L LDL Cholesterol, Calc 49 HDL Cholesterol 43 Lipase Procalcitonin TSH 2.36 SARS-CoV-2 (PCR) PFSH Medical History Lung cancer, primary, with metastasis from lung to other site Surgical History Hx of appendectomy Hx of bilateral hip replacements Family History Mother Cancer Father Unknown family medical history Social History (Updated 03/20/22 @ 00:14 by LISA Park) household members: significant other Previous occupational history: tree worker Smoking Status: Never smoker alcohol intake: current Discharge Plan Discharge Plan Patient Disposition: Home Provider Discharge Comment: Mr. Moreno came in to the hospital with chest pain. This improved. He was found to have a pneumonia and prescribed antibiotics Discharge orders & Medications Prescriptions: New amoxicillin-pot clavulanate 875-125 mg tablet 1 tab PO BID Qty: 8 0RF doxycycline hyclate 100 mg capsule 100 mg PO DAILY Qty: 8 0RF Continued acetaminophen 325 MG tablet 650 mg PO PRN Qty: 0 HYDROCODONE/ACET 5/500 - (Hydrocodon-Acetaminophen 5-500) 1 - 2 tab PO Q4-6H PRN Qty: 0 [VISINE] 1 drp IO PRN Qty: 0 methadone 10 mg Tablet 10 mg PO BID magnesium 200 mg Tablet 200 mg DAILY folic acid 15 mg Tablet 10 mg PO BID Follow up/Referrals: Reinaldo Biswas MD [Primary Care Provider] - Visit Report/Discharge Packet Instructions: DI for Heart Failure, DI for Prescription Opioid Use Discharge Data Primary Care Provider: Reinaldo Biswas
== END 2022-03-20 14:30 | disposition home or self-care (01) | DRG 194 ==
LOC: ED 23:02 → AC 23:32
PROVIDERS: Emergency Medicine; Admitting Provider Nurse Practitioner Family; Emergency Provider Emergency Medicine; PCP Family Medicine; Referring Provider Emergency Medicine; Visit Provider Nurse Practitioner Family
DX: J18.9 Pneumonia, unspecified organism (principal); C34.90 Malignant neoplasm of unspecified part of unspecified bronchus or lung; C79.51 Secondary malignant neoplasm of bone; C79.31 Secondary malignant neoplasm of brain; R07.89 Other chest pain; Z20.822 Contact with and (suspected) exposure to COVID-19; Z66 Do not resuscitate
CPT/HCPCS: 36415; 36591; 71045; 71275; 80053; 80061; 82550; 83690; 83735; 84145; 84443; 84484; 85025; 85379; 87635; 93005; 93306; 96365; 96367; 96375; 99284; C9803; G0378; J0696; J1650; J1885; Q9967